=== PATIENT | female | born 2000 | race Caucasian/White ===

== ENCOUNTER 2025-02-23 18:43 | Emergency (ER) | payer OTHER ==
[~2025-02-23] VITALS: Ht 160 cm; Wt 77.1 kg
[2025-02-23 20:08] LABS: IMMATURE GRANULOCYTE ABSOLUTE 0.06 K/uL (0-1); NUCLEATED RED BLOOD CELLS 0.0 % (0.0-0.19); PLATELET COUNT (AUTO) 405 K/uL (130-400); RED BLOOD CELL COUNT(AUTO) 4.34 MIL/uL (4.00-5.50); RED CELL DISTRIBUTION WIDTH 12.5 % (11.0-15.5); WHITE BLOOD COUNT (AUTO) 13.3 K/uL (4.8-10.8)
[2025-02-23 20:21] LABS: CREATININE 0.5 mg/dL (0.5-1.0); GLOMERULAR FILTR. RATE CALC 133.0 mL/min (>90); GLUCOSE,RANDOM 99.0 mg/dL (70-105); SODIUM SERUM 140.0 mmol/L (136-145); UREA NITROGEN, BLOOD 15.0 mg/dL (7-18)
[2025-02-23 20:31] LABS: ASPARTATE AMINOTRANSFERASE 23.0 U/L (10-37); TOTAL PROTEIN, SERUM 8.0 g/dL (6.0-8.3)
[2025-02-23 20:37] LABS: APPEARANCE,URINE CLEAR (CLEAR); GLUCOSE, URINE (UA) NEGATIVE (NEGATIVE); LEUKOCYTE ESTERASE ,URINE 25 Leu/uL (NEGATIVE); NITRATE,URINE NEGATIVE (NEGATIVE); OCCULT BLOOD,URINE +- (TRACE) (NEGATIVE)
[2025-02-23 20:39] LABS: SQUAMOUS EPITHELIAL CELL,UR RARE /HPF (0-2)
[2025-02-23] MEDS ORDERED: IOHEXOL-350 75 ML VIAL IV ONE (20:41)
[2025-02-23 20:42] LABS: HCG,QUALITATIVE URINE NEGATIVE (NEGATIVE)
--- NOTE | 2025-02-23 21:02 | HMCIMG ---
EXAM: CT Abdomen and Pelvis with IV contrast CLINICAL HISTORY: Lower abdominal pain TECHNIQUE: Axial computed tomography images of the abdomen and pelvis with intravenous contrast. CONTRAST: with intravenous contrast. COMPARISON: None provided. FINDINGS: LUNG BASES: The lung bases appear clear. No pleural effusions are seen. LIVER: Unremarkable. GALLBLADDER AND BILE DUCTS: The gallbladder appears within normal limits. No radioopaque gallstones are seen. No biliary ductal dilatation is evident. PANCREAS: Unremarkable. SPLEEN: Unremarkable. ADRENAL GLANDS: Unremarkable. KIDNEYS, URETERS, AND BLADDER: Thick-walled urinary bladder with adjacent stranding, consistent with cystitis. Normal kidneys. No hydronephrosis. STOMACH AND BOWEL: No bowel obstruction or inflammation. Constipation. APPENDIX: Normal appendix. PERITONEUM: No free fluid. No free air. LYMPH NODES: No lymphadenopathy is evident. REPRODUCTIVE: Bilateral adnexal cysts. Further evaluation with ultrasound is recommended. VASCULATURE: No evidence of abdominal aortic aneurysm. BONES: No aggressive appearing osseous lesion. No acute osseous pathology evident. IMPRESSION: 1. Thick-walled urinary bladder with adjacent stranding, consistent with cystitis. 2. Normal kidneys. No hydronephrosis. 3. No bowel obstruction or inflammation. Constipation. Normal appendix. 4. Bilateral adnexal cysts. Further evaluation with ultrasound is recommended. /[place]
--- NOTE | 2025-02-23 21:50 | ERN ---
General Chief Complaint: Abdominal Pain Stated Complaint: ABDOMINAL PAIN Time Seen by MD: 18:45 Time Seen by Midlevel: 18:45 Source: patient History of Present Illness Initial Comments 24-year-old female presents to the emergency department due to abdominal pain onset three weeks ago. Patient had a three months ago, has had OBGYN clearance. Stated she initiated with some mild exercise. Reports she is very tender to touch of the lower abdomen. Denies dysuria, chest pain, constipation, diarrhea, vomiting or further associated symptoms. Patient has been seen by OBGYN, placed on antibiotics for possible skin infection and has a ultrasound pending. Patient completed antibiotics (doxycycline) however pain has continued. Denies significant past medical history. Allergies: Coded Allergies: cephalexin (Unverified Allergy, Intermediate, HIVES, 02/23/25) Home Meds Active Scripts Sulfamethoxazole/Trimethoprim (Bactrim Ds Tablet) 800 Mg-160 Mg Tablet, 1 TAB PO BID for 7 Days, #14 TAB 0 Refills Prov:RAGHU LION 02/23/25 Discontinued Scripts Cephalexin (Cephalexin) 500 Mg Tablet, 1 TAB PO BID for 7 Days, #14 TAB 0 Refills Prov:RAGHU LION 02/23/25 Past Medical History Past Medical History: No Pertinent History Past Surgical History: ROS Dictation Constitutional: Negative for fever,chills, and weight loss Eyes: Negative for injury, pain,redness, and discharge ENT: Negative for injury,pain or swelling Cardiovascular: Negative for chest pain, palpitations, and edema Respiratory: Negative for shortness of breath, cough, and wheezing, Abdomen/GI: Positive for abdominal pain Negative for nausea, vomiting, diarrhea, and constipation Back: Negative for injury and pain : Negative for painful urination, bleeding or discharge MS/Extremity: Negative for injury and deformity Skin: Negative for rash, and discoloration Neuro: Negative for headache, weakness, numbness, tingling, and seizure Psych: Negative for suicide ideation, homicidal ideation, and hallucinations Physical Exam Physical Exam Dictation General: awake, alert, no acute distress Head/Face: Normocephalic, atraumatic Eyes: PERRL, EOMI, normal conjunctiva ENT: oral cavity clear, oral mucosa moist Neck: Supple, normal range of motion Cardiovascular: RRR, normal S1/S2 Respiratory: CTAB, no respiratory distress, no rales or wheezes Abdomen: Soft, lower abdomen tenderness, non-distended, normal bowel sounds, no guarding or rebound. Skin: Warm, dry, normal turgor, no rash. MS/Extremity: Pulses equal, no cyanosis, neurovascular intact, FROM Neuro: COAx4, GCS 15, no neurological deficits, normal gait Psych: Normal behavior, mood, and affect normal Results Laboratory and Microbiology Lab and Micro Result Laboratory Tests Test 02/23/25 19:54 02/23/25 20:30 White Blood Count 13.3 K/uL (4.8-10.8) H Red Blood Count 4.34 MIL/uL (4.00-5.50) Hemoglobin 13.6 g/dL (12.0-16.0) Hematocrit 40.7 % (36-48) Mean Corpuscular Volume 93.8 fL (79-99) Mean Corpuscular Hemoglobin 31.3 pg (27.0-33.0) Mean Corpuscular Hemoglobin Concent 33.4 g/dL (32.0-36.0) Red Cell Distribution Width 12.5 % (11.0-15.5) Platelet Count 405 K/uL (130-400) H Mean Platelet Volume 10.5 fL (7.5-10.5) Immature Granulocyte % (Auto) 0.5 % (0-1) Neutrophils (%) (Auto) 62.7 % (40.0-77.0) Lymphocytes (%) (Auto) 27.3 % (21.0-51.0) Monocytes (%) (Auto) 6.4 % (3.0-13.0) Eosinophils (%) (Auto) 2.6 % (0.0-8.0) Basophils (%) (Auto) 0.5 % (0.0-5.0) Neutrophils # (Auto) 8.3 K/uL (1.8-7.7) H Lymphocytes # (Auto) 3.6 K/uL (1.0-4.8) Monocytes # (Auto) 0.9 K/uL (0.1-1.0) Eosinophils # (Auto) 0.34 K/uL (0.00-0.70) Basophils # (Auto) 0.06 K/uL (0.00-0.20) Absolute Immature Granulocyte (auto 0.06 K/uL (0-1) Nucleated Red Blood Cells 0.0 % (0.0-0.19) Sodium Level 140 mmol/L (136-145) Potassium Level 3.9 mmol/L (3.5-5.1) Chloride Level 104 mmol/L (101-111) Carbon Dioxide Level 27 mmol/L (21-32) Blood Urea Nitrogen 15 mg/dL (7-18) Creatinine 0.5 mg/dL (0.5-1.0) Glomerular Filtration Rate Calc 133 mL/min (>90) Random Glucose 99 mg/dL (70-105) Total Calcium 9.1 mg/dL (8.5-10.1) Total Bilirubin 0.5 mg/dL (0.2-1.0) Direct Bilirubin 0.1 mg/dL (0.0-0.3) Aspartate Amino Transf (AST/SGOT) 23 U/L (10-37) Alanine Aminotransferase (ALT/SGPT) 47 U/L (12-78) Alkaline Phosphatase 88 U/L (50-136) Total Protein 8.0 g/dL (6.0-8.3) Albumin 4.0 g/dL (3.5-5.0) Lipase 88 U/L (16-77) H Urine Color LIGHT-YELLOW (YELLOW) Urine Appearance CLEAR (CLEAR) Urine pH 5.5 (5.0-8.0) Urine Specific [place] 1.024 (1.001-1.031) Urine Protein NEGATIVE mg/dL (NEGATIVE) Urine Glucose (UA) NEGATIVE mg/dL (NEGATIVE) Urine Ketones NEGATIVE mg/dL (NEGATIVE) Urine Occult Blood +- (TRACE) (NEGATIVE) H Urine Nitrate NEGATIVE (NEGATIVE) Urine Bilirubin NEGATIVE mg/dL (NEGATIVE) Urine Urobilinogen 0.2 mg/dL (0.2-1.0) Urine Leukocyte Esterase 25 [place]/uL (NEGATIVE) H Urine RBC 2-5 /HPF (0-1) H Urine WBC 2-5 /HPF (0-1) H Urine Squamous Epithelial Cells RARE /HPF (0-2) Urine Bacteria FEW /HPF (None Seen) Urine HCG, Qualitative NEGATIVE (NEGATIVE) Labs Reviewed?: Yes EKG/XRAY/US/CT/MRI CT Scan Comment REASON: Lower abdominal pain ORDERING PHYSICIAN: RAGHU LION PROCEDURE: ABD PEL W - CT ABDOMEN/PELVIS W/CONTRAST EXAM: CT Abdomen and Pelvis with IV contrast CLINICAL HISTORY: Lower abdominal pain TECHNIQUE: Axial computed tomography images of the abdomen and pelvis with intravenous contrast. CONTRAST: with intravenous contrast. COMPARISON: None provided. FINDINGS: LUNG BASES: The lung bases appear clear. No pleural effusions are seen. LIVER: Unremarkable. GALLBLADDER AND BILE DUCTS: The gallbladder appears within normal limits. No radioopaque gallstones are seen. No biliary ductal dilatation is evident. PANCREAS: Unremarkable. SPLEEN: Unremarkable. ADRENAL GLANDS: Unremarkable. KIDNEYS, URETERS, AND BLADDER: Thick-walled urinary bladder with adjacent stranding, consistent with cystitis. Normal kidneys. No hydronephrosis. STOMACH AND BOWEL: No bowel obstruction or inflammation. Constipation. APPENDIX: Normal appendix. PERITONEUM: No free fluid. No free air. LYMPH NODES: No lymphadenopathy is evident. REPRODUCTIVE: Bilateral adnexal cysts. Further evaluation with ultrasound is recommended. VASCULATURE: No evidence of abdominal aortic aneurysm. BONES: No aggressive appearing osseous lesion. No acute osseous pathology evident. IMPRESSION: 1. Thick-walled urinary bladder with adjacent stranding, consistent with cystitis. 2. Normal kidneys. No hydronephrosis. 3. No bowel obstruction or inflammation. Constipation. Normal appendix. 4. Bilateral adnexal cysts. Further evaluation with ultrasound is recommended. /[place] DICTATED BY: SYLVIA BRADFORD MD DATE: 02/23/252199 [facility] MDM: Differential diagnosis: UTI, hernia, cystitis, abdominal wall pain, Rationale: 24-year-old female presents to the emergency department due to abdominal pain onset three weeks ago. Patient had a three months ago, has had OBGYN clearance. Stated she initiated with some mild exercise. Reports she is very tender to touch of the lower abdomen. Denies dysuria, chest pain, constipation, diarrhea, vomiting or further associated symptoms. Patient has been seen by OBGYN, placed on antibiotics for possible skin infection and has a ultrasound pending. Patient completed antibiotics (doxycycline) however pain has continued. Denies significant past medical history. Labs obtained indicating mild leukocytosis of 13.3 otherwise nonspecific. UA indicates a UTI with 25 leukocyte esterase and 2-[address] abdomen and pelvis obtained indicating cystitis, constipation, and bilateral adnexal cyst recommended ultrasound follow up. Pelvic ultrasound obtained preliminary report unremarkable. Patient was administered ketorolac and Rocephin in the ED. Educated on findings and diagnosis. Patient was offered admission due to recent antibiotic use, however patient verbalized she would like outpatient treatment due to having a baby at home. Antibiotics prescribed for outpatient treatment of a cystitis. Advised to follow up with PCP. Return to the emergency department for any worsening symptoms. Patient verbalized understanding. Patient stable for discharge. There are no social concerns with this patient. I independently interpreted the test that were performed, results were reviewed by me and considered findings on radiology if ordered. Medical management and examination interpretation discussions were had by me with other qualified healthcare professionals as indicated for the patient's ca re. ED Course Orders Procedure Category Date Status Time Cbc With Differential LAB 02/23/25 Complete 18:51 Basic Metabolic Panel LAB 02/23/25 Complete 18:51 Hepatic Function Panel LAB 02/23/25 Complete 18:51 Lipase LAB 02/23/25 Complete 18:51 Urinalysis LAB 02/23/25 Complete W/Microscopic 18:51 ,Urine Test LAB 02/23/25 Complete 18:51 Ct Abdomen/Pelvis CT 02/23/25 Resulted W/Contrast 18:51 Iohexol (Omnipaque) PHA 02/23/25 Complete 20:41 Ketorolac PHA 02/23/25 Complete Tromethamine 15mg/Ml 21:00 Us Pelvic Non-Ob Comp US 02/23/25 Taken 21:32 Ceftriaxone 1g Vial PHA 02/23/25 Complete (Rocephine 1g Inj) 22:00 Current Medications Medications (Trade) Dose Ordered Sig/Marah Route PRN Reason Start Time Stop Time Status Last Admin Dose Admin Ceftriaxone Sodium (ROCEphine 1G INJ) 1 gm ONCE ONCE IM 02/23/25 22:00 02/23/25 22:04 DC 02/23/25 22:07 Iohexol (Omnipaque) 75 ml STK-MED ONCE IV 02/23/25 20:41 02/23/25 20:42 DC Ketorolac Tromethamine (toRADol) 15 mg ONCE ONCE IV 02/23/25 21:00 02/23/25 21:01 DC 02/23/25 20:58 Vital Signs Date Time Temp Pulse Resp B/P (MAP) Pulse Ox O2 Delivery O2 Flow Rate FiO2 02/23/25 22:00 99.0 80 16 125/70 98 Room Air* 0 21 02/23/25 20:36 99.0 85 16 130/75 98 Room Air* 0 21 02/23/25 18:44 99.0 89 18 132/80 98 Room Air DX & DISP Disposition: Discharge Departure Impression: Primary Impression: Cystitis Condition: Stable Scripts Sulfamethoxazole/Trimethoprim (Bactrim Ds Tablet) 800 Mg-160 Mg Tablet 1 TAB PO BID for 7 Days, #14 TAB 0 Refills Prov: RAGHU LION 02/23/25 Additional Instructions: Discharge home. Rest. Follow up with primary care DrMarcello in 24 hours. Return to the ER for any acute changes or worsening symptoms. If any medications were prescribed take as directed. Okay to continue home medications unless otherwise discussed during your visit in the emergency room today. Patient was also advised to follow-up with primary care physician in 1 to 2 days for continued monitoring. Referrals: SELF,REFERRAL (PCP) I performed the substantive portion of the visit. I have reviewed and personally made and approve the management plan that is documented in the notes by myself or the TELMA. I acknowledge full responsibility for the patient's management plan. RAGHU LION Feb 23, 2025 21:50
[2025-02-23 22:00] VITALS: BP 125/70; PULSE 80; RESP 16; TEMP 99; O2SAT 98
[2025-02-23] MEDS ORDERED: CEPH500T PO (22:11)
[2025-02-23] MEDS ORDERED: SULF1TAB42 PO (22:25)
--- NOTE | 2025-02-23 23:14 | HMCIMG ---
EXAM: A complete transabdominal pelvic ultrasound was performed. CLINICAL HISTORY: The patient presents with pelvic pain. The last menstrual period was on January 18, 2025. Obstetric history is 1, Para 1, with no abortions or ectopic pregnancies. A recent test was negative. TECHNIQUE: Real-time transabdominal pelvic ultrasound was performed with image documentation. COMPARISON: No prior imaging was provided for comparison. FINDINGS: The uterus measures 10.2 ??? 5.6 ??? 4.8 cm. It has a normal contour, and no fibroids or masses are identified. The endometrium measures 10 mm in thickness, which is within normal limits for this phase of the menstrual cycle. No focal lesions are seen. The right ovary measures 2.9 ??? 1.7 ??? 3.0 cm and appears normal in size and echotexture. Doppler flow is preserved. The left ovary measures 2.9 ??? 1.7 ??? 3.2 cm and also appears normal in size and echotexture, with preserved Doppler flow. There is no free fluid in the cul-de-sac. IMPRESSION: Negative examination. No adnexal cysts or mass are evident on transabdominal ultrasound evaluation as suspected in the recent CT abdomen and pelvis. Further evaluation with a transvaginal ultrasound of the pelvis may be done. /[place]
== END 2025-02-23 22:28 | disposition home or self-care (01) ==
LOC: EDH 18:43
DX: N30.90 Cystitis, unspecified without hematuria (principal); Z88.1 Allergy status to other antibiotic agents; Z79.899 Other long term (current) drug therapy
CPT/HCPCS: 99285; 74177; 96374; 76856; 80076; 80048; 83690; 85025; 81001; 81025; 36415; 96372; J1885; J0696; Q9967

== ENCOUNTER → 2025-04-12 | Outpatient (CLI) | payer OTHER ==
[~2025-04-12] MED LIST: GADOTERATE MEGLUMINE 10 MMOL/20 ML VIAL IV ONE; SULF1TAB42 PO
--- NOTE | 2025-04-13 11:32 | HMCIMG ---
EXAM: MR Pelvis with and without Intravenous Contrast. CLINICAL HISTORY: Patient presents with pelvic and perineal pain. TECHNIQUE: Multisequence, multiplanar magnetic resonance images of the pelvis with and without intravenous contrast. CONTRAST: IV. COMPARISON: None provided. FINDINGS: BOWEL: Grossly unremarkable. Limited evaluation of stomach and bowel demonstrates no acute abnormality. BLADDER: Unremarkable. No calculus. REPRODUCTIVE: Unremarkable as visualized. The uterus measures 10.0 x 6.2 x 5.0 cm. The endometrium measures 8 mm. There are no focal lesions. The right ovary measures 3.1 x 2.5 x 2.0 cm. The left ovary measures 3.2 x 2.9 x 2.0 cm. There are physiologic follicles in both ovaries. LYMPH NODES: No lymphadenopathy. BONES: Subchondral bone marrow edema of both surfaces of the left sacroiliac joint, demonstrating low signal intensity on T1-weighted imaging, high signal intensity on T2-weighted imaging, and mild enhancement, consistent with active inflammatory change. No acute fracture or aggressive osseous lesion. SOFT TISSUES: There is no peritoneal fluid collection identified. IMPRESSION: Subchondral bone marrow edema with enhancement involving both surfaces of the left sacroiliac joint, consistent with active sacroiliitis. Recommend correlation with clinical findings and dedicated MRI sacroiliac joints for further characterization. Normal uterus and ovaries. No perineal fluid collection identified. /[place]
== END | disposition home or self-care (01) ==
LOC: RAH 07:54
PROVIDERS: ATTEND Obstetrics & Gynecology
DX: R60.0 Localized edema (principal); R10.2 Pelvic and perineal pain; N88.8 Other specified noninflammatory disorders of cervix uteri
CPT/HCPCS: 72197; A9575